=== PATIENT | male | born 1945 | race Caucasian/White ===

== ENCOUNTER 2018-11-15 10:33 | Inpatient (IN) ==
[2018-11-15] MEDS ORDERED: POLYETHYLENE (MIRALAX) 17 GM PACK PO PRN (11:05)
[2018-11-15] MEDS ORDERED: ONDANSETRON INJ 2 MG/ML 2 ML VIAL IV PRN (11:05)
[2018-11-15] MEDS ORDERED: MAGNESIUM HYDROXIDE SUSP 30 ML UDC PO PRN (11:05)
[2018-11-15] MEDS ORDERED: ACETAMINOPHEN 325 MG TAB PO PRN (11:05)
[2018-11-15] MEDS ORDERED: ALUMINUM/MAGNESIUM SUSP 30 ML UDC PO PRN (11:05)
[2018-11-15 11:49] LABS: Basophils # (auto) 0.01 K/uL (0-0.2); Basophils % (auto) 0.1 %; Eosinophils # (auto) 0.13 K/uL (0-0.5); Eosinophils % (auto) 0.9 %; Hematocrit (blood only) 41.9 % (42-52); Hemoglobin 14.2 g/dL (14.0-18.0); Immature Granulocytes # (auto) 0.03 K/uL (0.00-0.02); Immature Granulocytes % (auto) 0.2 %; Lymphocytes % (auto) 9.8 %; Mean Corpuscular Hgb Conc 33.9 g/dL (32-36); Mean Corpuscular Volume 84.8 fL (80-100); Mean Platelet Volume 10.1 fL (7.4-10.4); Monocytes # (auto) 0.99 K/uL (0.11-0.59); Monocytes % (auto) 6.9 %; Neutrophils % (auto) 82.1 %; Platelet Count 188 K/uL (130-400); RDW Coefficient of Variation 12.9 % (11.5-14.5); RDW Standard Deviation 39.5 fL (36.4-46.3); Red Blood Count 4.94 M/uL (4.7-6.1); White Blood Count 14.26 K/uL (4.8-10.8)
[2018-11-15 12:00] LABS: Partial Thromboplastin Ratio 1.2; Partial Thromboplastin Time 30.6 Seconds (21.0-31.0); Prothrombin Time 10.5 Seconds (9.0-12.0)
[2018-11-15 12:05] LABS: Albumin Level 2.9 gm/dl (3.4-5.0); BUN Creatinine Ratio 14.5 (10-20); Calcium 9.2 mg/dl (8.5-10.1); Creatinine Clr Calc Pharmacy 41.1 ml/min; Est GFR (African American) 50.3; Est GFR (Non-African American) 43.4; Magnesium 2.2 mg/dl (1.8-2.4); Potassium 3.6 mmol/L (3.5-5.1)
[2018-11-15 12:08] LABS: Albumin Globulin Ratio 0.6 (0.9-2); Bilirubin,Total 0.7 mg/dl (0.2-1); Globulin 4.9 gm/dl (2.5-4.0); Total Protein 7.9 gm/dl (6.4-8.2)
[2018-11-15] MEDS ORDERED: HEPARIN IV BOLUS 6,000 UNITS in SYRINGE 0 ML IV ONE (12:12)
--- NOTE | 2018-11-15 12:28 | History & Physical Report ---
Date of Service November 15, 2018 Assessment & Plan (1) Pulmonary embolus, left: CT PE confirms LLL subsegmental PE Patient with pleuritic like chest pain -obtain CBC, CMP, Mag, PT/INR, ptt, pro calcitonin, lactate -obtain hypercoagulable work up -initiate heparin standard bolus and gtt (secondary to pt with intermittent hematuria) -if tolerates heparin gtt, transition to Eliquis, xarelto or NOAC in a.m. (case management has been contacted to obtain insurance auths) -will hold off on azithromycin and prednisone taper for now, sx less likely infectious, await blood work -repeat cbc, bmp in a.m. 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 Keene urology -has been having intermittent hematuria post op -given hematuria, initiating Heparin gtt to monitor patient for bleeding prior to starting NOAC (6) DVT prophylaxis: -initiate heparin bolus and gtt Disposition: Discharge to home when able Follow up: with PCP Dr. Hirsch as outpatient for close follow up and follow up of anticoagulation work up Patient was seen in collaboration with Dr. Spence, please see addendum. Starting 11/16/18 patient will be under the care of Dr. Pinto History of Present Illness Chief Complaint: chest discomfort x 3 weeks. Primary Care Provider: Valentín Jerome MD This is a 73-year-old white male who has a significant PMH of HTN, HLD, CKD stage III, BPH who recently underwent TURP and TURBT on 10/07/18 for noncancerous bladder lesion. Since procedure patient has been having off-and- on left-sided chest discomfort anteriorly, SOB with exertion, off and on dry cough. Further noted was elevated temperature yesterday of 101. He initially presented to his PCP approximately 3 weeks ago in which a prednisone taper was prescribed. [place] symptoms consistent with costochondritis. He also had d- dimer drawn secondary to recent procedure which was elevated; however, patient refused CT secondary to improvement of symptoms. Presented to PCP office yesterday with similar pleuritic chest pain, cough, fever of 101. Prescribed Z- John and prednisone taper. He was sent for CT this a.m. which revealed left lower lobe subsegmental PE, consolidation consistent with atelectasis versus early infarction and small left pleural effusion. Given results it was recommended patient be admitted for direct admission. He also elicits intermittent hematuria since procedure in which Dr. Keene is aware. He denies any chills, sweats, lightheadedness, dizziness, shortness of breath at rest, hemoptysis, nausea, vomiting, abdominal pain, change in urinary or bowel habits. Appetite has been normal. Allergies Allergy/AdvReac Type Severity Reaction Status Date / Time chlorhexidine Allergy Intermediate red;burning Verified 11/12/14 07:24 skin Home Medications Home Medications Medication Instructions Recorded Confirmed Type atorvastatin 10 mg PO DAILY 11/15/18 11/15/18 History azithromycin 250 mg PO UD 11/15/18 11/15/18 History chlorthalidone 25 mg PO DAILY 11/15/18 11/15/18 History losartan 50 mg PO DAILY 11/15/18 11/15/18 History prednisone 20 mg PO UD 11/15/18 11/15/18 History Past Med/Surg History Medical History HTN (hypertension) HLD (hyperlipidemia) CKD (chronic kidney disease) stage 3, GFR 30-59 ml/min BPH (benign prostatic hyperplasia) Surgical History History of colonoscopy History of hernia repair H/O transurethral resection of prostate 10/07/18 Hx of transurethral destruction of 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/07/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, was negative for cancer Family History Sister Heart attack Father Black lung disease Other No history of coagulation disorder Social History marital status: Single Current Living Situation Comment: sister and nephew Other Information That Helps Us Care for You: No Feels Safe at Home: Yes Smoking Status: Former smoker Do You Dip or Chew Tobacco: No Smoking End Date: 11/08/84 Second Hand Exposure: No Hx Alcohol Use: No Hx Substance Use: No Beliefs That Will Affect Care: None Communication Ability: Effective Review of Systems All systems reviewed & are unremarkable except as noted in HPI & below Physical Exam 2 Vital Signs (Past 24 Hours): Last Vital Signs Temp 36.5 C 11/15/18 11:49 Pulse 65 11/15/18 11:49 Resp 19 11/15/18 11:49 BP 173/84 H 11/15/18 11:49 Pulse Ox 97 11/15/18 11:53 Physical Exam: Gen: WD/WN, M, NAD, sitting up in bed, pleasant, conversing easily Head: Normocephalic, Atraumatic Eyes: Sclera normal, no conjunctival injection, PERRLA, EOMI ENT: Gross hearing intact, normal pharynx, mucous membranes moist Neck: supple, no adenopathy, No JVD, no bruit, Resp: Clear to auscultation b/l, no wheeze, rales, rhonchi. Normal insp/exp effort, no accessory muscle use, slight discomfort with deep breathing CV: Regular rate, regular rhythm, no murmur, rub, gallop, or ectopy Abd: +BS x 4, soft, nontender, nondistended Musculoskeletal: moves extremities active rom x 4, strength intact, good logistics program manager strength Extremities: No edema bilaterally Skin: warm, moist, no rash, negative turgor, cap refill < 2sec Neuro: Alert and oriented x 3, speech normal, good mood/affect, cran nerve 2-12 intact grossly : deferred Results & Data Laboratory Results Short CBC 11/15/18 Range/Units 11:19 WBC 14.26 H (4.8-10.8) K/uL Hgb 14.2 (14.0-18.0) g/dL Hct 41.9 L (42-52) % Plt Count 188 (130-400) K/uL BMP 11/15/18 11:19 Sodium 137 Potassium 3.6 Chloride 102 Carbon Dioxide 28 BUN 23 H Creatinine 1.57 H Glucose 104 H Calcium 9.2 Liver Function 11/15/18 Range/Units 11:19 Total Bilirubin 0.7 (0.2-1) mg/dl AST 10 L (15-37) U/L ALT 21 (12-78) U/L Alkaline Phosphatase 72 (45-117) U/L Albumin 2.9 L (3.4-5.0) gm/dl Diagnostic Findings CT PE: IMPRESSION Small pulmonary emboli in the left lower lobar segmental pulmonary arteries. No evidence of right heart strain. Consolidation in the left lower lobe likely atelectasis though early infarct not excluded. Small left pleural effusion. ECG Rate (beats per minute): 63 Rhythm: normal sinus Findings: + RBBB Change: no significant change Code Status & VTE Plan Code Status Full Code VTE Prophylaxis Plan VTE Prophylaxis will be ordered: Yes Supervising Physician Co-Signing Physician Notes I saw this patient with the physician medical support assistant, I participated in the history, physical, review of systems, and physical exam. I reviewed the medications with the patient and the physician medical support assistant and helped reconcile the medications. I helped take a detailed family and social history as well. I formulated the assessment and plan personally with the physician medical support assistant and went over it with the patient.
[2018-11-15] MEDS: HEPARIN STANDARD DEXTROSE 25,000 UNITS/500 ML IV SCH (12:41)
[2018-11-15] MEDS ORDERED: HEPARIN SOD (PORCINE) 1000 UNIT/ML 10 ML VIAL ONE (12:46)
[2018-11-15] MEDS: ALBUTEROL 0.083% NEBU SOLN 3 ML VIAL NEB SCH ×2 (13:42→19:23)
[2018-11-15 19:46] LABS: Partial Thromboplastin Ratio 1.8
[2018-11-15 19:49] LABS: Partial Thromboplastin Time 45.7 Seconds (21.0-31.0)
[2018-11-15] MEDS ORDERED: HEPARIN IV BOLUS 3,000 UNITS in SYRINGE 0 ML IV ONE (21:45)
[2018-11-16] MEDS: ALBUTEROL 0.083% NEBU SOLN 3 ML VIAL NEB SCH ×3 (01:51→14:12)
[2018-11-16 04:39] LABS: Basophils # (auto) 0.02 K/uL (0-0.2); Basophils % (auto) 0.2 %; Eosinophils # (auto) 0.56 K/uL (0-0.5); Eosinophils % (auto) 6.2 %; Hematocrit (blood only) 39.2 % (42-52); Hemoglobin 13.2 g/dL (14.0-18.0); Immature Granulocytes # (auto) 0.02 K/uL (0.00-0.02); Immature Granulocytes % (auto) 0.2 %; Lymphocytes # (auto) 1.59 K/uL (1.2-3.4); Lymphocytes % (auto) 17.5 %; Mean Corpuscular Hgb Conc 33.7 g/dL (32-36); Mean Corpuscular Volume 85.2 fL (80-100); Mean Platelet Volume 9.9 fL (7.4-10.4); Monocytes # (auto) 0.59 K/uL (0.11-0.59); Monocytes % (auto) 6.5 %; Neutrophils # (auto) 6.31 K/uL (1.4-6.5); Neutrophils % (auto) 69.4 %; Platelet Count 183 K/uL (130-400); RDW Coefficient of Variation 13.1 % (11.5-14.5); RDW Standard Deviation 40.3 fL (36.4-46.3); White Blood Count 9.09 K/uL (4.8-10.8)
[2018-11-16 04:58] LABS: BUN Creatinine Ratio 17.8 (10-20); Calcium 8.5 mg/dl (8.5-10.1); Creatinine Clr Calc Pharmacy 42.5 ml/min; Est GFR (African American) 52.3; Est GFR (Non-African American) 45.1; Potassium 3.2 mmol/L (3.5-5.1)
[2018-11-16 05:02] LABS: Partial Thromboplastin Ratio 2.5
[2018-11-16 05:10] LABS: Partial Thromboplastin Time 64.7 Seconds (21.0-31.0)
[2018-11-16] MEDS: HEPARIN STANDARD DEXTROSE 25,000 UNITS/500 ML IV SCH (05:14)
[2018-11-16] MEDS ORDERED: ATORVASTATIN 10 MG TAB PO SCH (09:00)
[2018-11-16] MEDS ORDERED: CHLORTHALIDONE 25 MG TAB PO SCH (09:00)
[2018-11-16] MEDS ORDERED: LOSARTAN POTASSIUM 50 MG TAB PO SCH (09:00)
--- NOTE | 2018-11-16 13:21 | Hospitalist Progress Note ---
Date of Service November 16, 2018 Assessment & Plan (1) Pulmonary embolus, left: CT PE confirms LLL subsegmental PE Patient c/o pleuritic like chest pain on admission -hypercoagulable work up -Continue heparin when able -if tolerates heparin gtt, transition to Eliquis, xarelto or NOAC in a.m. (case management has been contacted to obtain insurance auths) -We will get hematology to see the patient (2) HTN (hypertension): -continue chlorthalidone and losartan -monitor bp closely (3) HLD (hyperlipidemia): -continue statin (4) CKD (chronic kidney disease) stage 3, GFR 30-59 ml/min: -baseline CR 1.5 -renal function stable -monitor bmp (5) BPH (benign prostatic hyperplasia): -s/p recent TURP/TURBT of noncancerous tumor 10/07/18 -follows Dr. Keene urology -has been having intermittent hematuria post op -given hematuria, we initiated a heparin gtt to monitor patient for bleeding prior to starting NOAC, did have hematuria so we will not consult hematology/ oncology for further recommendations and hold the heparin drip for now. (6) DVT prophylaxis: -Hold heparin drip for now Disposition: Discharge to home when able Follow up: with PCP Dr. Hirsch as outpatient for close follow up and follow up of anticoagulation work up Subjective She was placed on heparin drip in case he bled, was going to put him on Eliquis but since this was not reversible I decided to put him on a heparin drip. Overnight he did bleed, had 2 episodes of hematuria, otherwise he had no other symptoms Physical Exam 2 Vital Signs (Past 24 Hours): Last Vital Signs Temp 36.9 C 11/16/18 07:40 Pulse 83 11/16/18 10:04 Resp 18 11/16/18 08:03 BP 147/70 H 11/16/18 07:40 Pulse Ox 95 11/16/18 08:03 ROS-No Headache, No Visual Changes, No Fever, No Chills, No Neck Pain or Stiffness, No Chest Pain, No Palpitations, No SOB, No CAVAZOS, No Cough, No Sputum, No Wheezing, No Abdominal Pain, No Diarrhea, No Hematemesis, No Hemoptysis, No Unexpected Weight Loss, No Flank pain, No Melena, No Hematochezia, No Frequency , No Urgency, No Burning, No Hematuria, No Rashes, No Diaphoresis. Appetite is Normal Physical Exam Gen-AAO x 3, NAD, Afebrile Head-NCAT, EOMI, PERRLA, Anicteric Sclera, No Posterior Pharyngeal Erythema Neck-Supple, No JVD, No Thyromegaly, No Masses, No LAD, No Bruits Lungs-Clear to Auscultation Bilaterally, No Rales, No Rhonchi, No Wheezing, No Crepitus Chest-No S4, +S1, +S2, No S3, No Murmurs, No Rubs, No Gallops, No Ectopy Abdomen-Soft, Bowel Sounds Present, Non Tender, Non Distended, No Hepatomegaly, No Splenomegaly, No Palpable Masses, No Rebound, No Rigidity, No Guarding Musculoskeletal-Full Range of Motion Bilaterally, No CVAT Extremities-No Cyanosis, No Clubbing, No Edema Nuero-Cranial Nerves II-XII grossly intact, Motor WNL, DTRs WNL, Strength WNL, No Focal Psych-Normal Mood -positive hematuria Results & Data Laboratory Results Current Diagnoses Hyperlipidemia, unspecified (11/15/18) Essential (primary) hypertension (11/15/18) Other pulmonary embolism without acute cor pulmonale (11/15/18) Chronic kidney disease, stage 3 (moderate) (11/15/18) Benign prostatic hyperplasia without lower urinary tract symptoms (11/15/18) Allergies chlorhexidine Allergy (Intermediate, Verified 11/12/14 07:24) red;burning skin Height/Weight/Isolation Height 5 ft 8 in Weight 76.5 kg Chemistry 11/15/18 11/16/18 11:19 04:14 Sodium 137 138 Potassium 3.6 3.2 L Chloride 102 104 Carbon Dioxide 28 28 Anion Gap 6.0 6.0 BUN 23 H 27 H Creatinine 1.57 H 1.52 H Glucose 104 H 112 H
--- NOTE | 2018-11-16 17:02 | Discharge Summary ---
Date of Service November 16, 2018 Admission HPI Per Admitting Provider This is a 73-year-old white male who has a significant PMH of HTN, HLD, CKD stage III, BPH who recently underwent TURP and TURBT on 10/07/18 for noncancerous bladder lesion. Since procedure patient has been having off-and- on left-sided chest discomfort anteriorly, SOB with exertion, off and on dry cough. Further noted was elevated temperature yesterday of 101. He initially presented to his PCP approximately 3 weeks ago in which a prednisone taper was prescribed. [place] symptoms consistent with costochondritis. He also had d- dimer drawn secondary to recent procedure which was elevated; however, patient refused CT secondary to improvement of symptoms. Presented to PCP office yesterday with similar pleuritic chest pain, cough, fever of 101. Prescribed Z- John and prednisone taper. He was sent for CT this a.m. which revealed left lower lobe subsegmental PE, consolidation consistent with atelectasis versus early infarction and small left pleural effusion. Given results it was recommended patient be admitted for direct admission. He also elicits intermittent hematuria since procedure in which Dr. Keene is aware. He denies any chills, sweats, lightheadedness, dizziness, shortness of breath at rest, hemoptysis, nausea, vomiting, abdominal pain, change in urinary or bowel habits. Appetite has been normal. Admission Exam Per Admitting Provider ROS-No Headache, No Visual Changes, No Fever, No Chills, No Neck Pain or Stiffness, No Chest Pain, No Palpitations, No SOB, No CAVAZOS, No Cough, No Sputum, No Wheezing, No Abdominal Pain, No Diarrhea, No Hematemesis, No Hemoptysis, No Unexpected Weight Loss, No Flank pain, No Melena, No Hematochezia, No Frequency , No Urgency, No Burning, No Hematuria, No Rashes, No Diaphoresis. Appetite is Normal, Pleuritic CP Physical Exam Gen-AAO x 3, NAD, Afebrile Head-NCAT, EOMI, PERRLA, Anicteric Sclera, No Posterior Pharyngeal Erythema Neck-Supple, No JVD, No Thyromegaly, No Masses, No LAD, No Bruits Lungs-Clear to Auscultation Bilaterally, No Rales, No Rhonchi, No Wheezing, No Crepitus Chest-No S4, +S1, +S2, No S3, No Murmurs, No Rubs, No Gallops, No Ectopy Abdomen-Soft, Bowel Sounds Present, Non Tender, Non Distended, No Hepatomegaly, No Splenomegaly, No Palpable Masses, No Rebound, No Rigidity, No Guarding Musculoskeletal-Full Range of Motion Bilaterally, No CVAT Extremities-No Cyanosis, No Clubbing, No Edema Nuero-Cranial Nerves II-XII grossly intact, Motor WNL, DTRs WNL, Strength WNL, No Focal Psych-Normal Mood Principal Diagnosis PE HTN HLD BPH CKD Discharge Exam ROS-No Headache, No Visual Changes, No Fever, No Chills, No Neck Pain or Stiffness, No Chest Pain, No Palpitations, No SOB, No CAVAZOS, No Cough, No Sputum, No Wheezing, No Abdominal Pain, No Diarrhea, No Hematemesis, No Hemoptysis, No Unexpected Weight Loss, No Flank pain, No Melena, No Hematochezia, No Frequency , No Urgency, No Burning, No Hematuria, No Rashes, No Diaphoresis. Appetite is Normal Physical Exam Gen-AAO x 3, NAD, Afebrile Head-NCAT, EOMI, PERRLA, Anicteric Sclera, No Posterior Pharyngeal Erythema Neck-Supple, No JVD, No Thyromegaly, No Masses, No LAD, No Bruits Lungs-Clear to Auscultation Bilaterally, No Rales, No Rhonchi, No Wheezing, No Crepitus Chest-No S4, +S1, +S2, No S3, No Murmurs, No Rubs, No Gallops, No Ectopy Abdomen-Soft, Bowel Sounds Present, Non Tender, Non Distended, No Hepatomegaly, No Splenomegaly, No Palpable Masses, No Rebound, No Rigidity, No Guarding Musculoskeletal-Full Range of Motion Bilaterally, No CVAT Extremities-No Cyanosis, No Clubbing, No Edema Nuero-Cranial Nerves II-XII grossly intact, Motor WNL, DTRs WNL, Strength WNL, No Focal Psych-Normal Mood Discharge Data Allergies Allergy/AdvReac Type Severity Reaction Status Date / Time chlorhexidine Allergy Intermediate red;burning Verified 11/12/14 07:24 skin Consultations 11/15/18 11:07 Consult Case Management - Discharge Planning Routine 11/16/18 13:21 Consult Hematology Routine Ordered Studies 11/16/18 16:18 US venous doppler [facility] Urgent Hospital Course (1) Pulmonary embolus, left: CT PE confirms LLL subsegmental PE Patient c/o pleuritic like chest pain on admission -hypercoagulable work up in progress -DC today on Eliquis 10 mg twice daily for 7 days then 5 mg twice daily -Hematology has seen the patient and will follow up outpatient, likely will be on Eliquis for 6 months (2) HTN (hypertension): -continue chlorthalidone and losartan (3) HLD (hyperlipidemia): -continue statin (4) CKD (chronic kidney disease) stage 3, GFR 30-59 ml/min: -baseline CR 1.5 -renal function stable (5) BPH (benign prostatic hyperplasia): -s/p recent TURP/TURBT of noncancerous tumor 10/07/18 -follows Dr. Keene urology -has been having intermittent hematuria post op (6) DVT prophylaxis: Disposition: Discharge to home Today Follow up: with PCP Dr. Hirsch as outpatient for close follow up and follow up of anticoagulation work up Follow-up with hematology in the office in the next 2-3-weeks Total Time Total Time Spent Total Time Spent (In Minutes): 70 mins Total Time Includes: Examination of the Patient, Discharge Planning, Medication Reconciliation and Communication With Other Providers Discharge Plan Discharge Items Patient Disposition: Home - Self-Care Reason For Visit: LLL PNA/PE Discharge Diagnosis: PE HTN HLD BPH CKD Discharge Goals: Improve disease control Activity: Resume your previous activity Lifting: Gradually increase as tolerated Bathing: No limitations Sexual Activity: After one week Exercise/Sports: Wait until after follow-up appointment Driving/Machine Use: No limitations Weightbearing: Left weightbearing and Right weightbearing Non-emergency contact: Primary Care Provider and Oncologist Call non-emergency contact if: your symptoms worsen Follow-up/Referrals: Valentín Jerome MD [Primary Care Provider] - Diet: Heart Healthy Addtl Provider Instructions: On Eliquis for PE Prescriptions: New apixaban 5 mg tablet 5 mg PO BID Qty: 90 RF: 0 Continue losartan 50 mg Tablet 50 mg PO DAILY RF: 0 atorvastatin 10 mg Tablet 10 mg PO DAILY RF: 0 chlorthalidone 25 mg Tablet 25 mg PO DAILY RF: 0 Discontinued azithromycin 250 mg tablet 250 mg PO UD RF: 0 prednisone 20 mg tablet 20 mg PO UD RF: 0 Visit Report Forms: My [facility] [employer] Portal Stand-Alone Forms: My [facility] [employer] Discharge Orders: Discharge Order (Routine); Ordered 11/16/18 Ordered By: Harlan Spence Admission Data Admit Date/Time: 11/16/18 13:22 Attending Provider: Harlan Spence Admit Provider: Harlan Spence Primary Care Provider: Valentín Jerome Other Providers: Lazaro Cohn ; Kishor Sood ; Nathen Mott ; Shahab Perales Service: Telemetry
--- NOTE | 2018-11-16 17:13 | Ultrasound Report ---
US venous doppler LE BI HISTORY: Pain. Edema. PE COMPARISON STUDY: None. FINDINGS: There is normal compressibility, flow, and augmentation within the bilateral lower extremit y deep venous systems. IMPRESSION: No DVT within the right or left lower extremity. The above report was generated using voice recognition software. It may contain grammatical, syntax or spelling errors. Electronically signed by: Aris Garcia M.D. 11/16/2018 5:12 PM
--- NOTE | 2018-11-16 17:44 | Oncology Consultation ---
Date of Consultation November 16, 2018 Assessment & Plan (1) Pulmonary embolus, left: 73-year-old male, Admitted for symptomatic pulmonary embolism in the left lower extremity, this is the 1st episode, no family history of any kind of thrombotic complications, no increasing leg pain or leg edema. Start her on IV heparin with improvement of the pulmonary symptoms. Symptoms started about 10 days after the prostate biopsy surgery and he traveled for the fishing trip to [facility]. Hypercoagulable state work up in progress. I agree about switching him to newer oral anticoagulant treatment with Eliquis and then he could go home, before he goes, would like to check bilateral lower extremity doppler evaluation therapy for the future comparison. It appears that he has provoked thrombotic complications, planning for 3 to 6 months off the anticoagulant treatment, I would like to see him back in the clinic in about 3 months for the follow-up visit. Nathen Mott MD Hem/Onc History of Present Illness Attending Physician: Harlan Spence DO 73-year-old male, Background medical problem: - Hypertension, hyperlipidemia, chronic kidney disease, BPH. He underwent biopsy of the prostate lesion on 10/07/2018, final path showed benign findings. About 10 days after that, he traveled to [facility] fishing trip, he says that he was in the cold water for some time, he wasn't feeling quite well after that, had some trouble breathing and since then he has pulmonary symptoms, seen by primary-care provider, treated with prednisone taper, continue to have increasing chest pain, flank pain, shortness of breath, increasing coughing, had slightly elevated d-dimer level in the recent blood workup, had CT scan of chest with PE protocol which shows evidence of small left lower lobe pulmonary embolism and now he is admitted for the further management. I saw him at bedside, he is sitting comfortably in the bed, receiving IV heparin treatment, he says that he's feeling much better in the last 12 hours, flank pain has improved, shortness of breath also has improved, has some intermittent hematuria following the recent the surgical intervention, no bleeding from either sites, no increasing bruising. He denies any history of thrombotic complications in the past. No family for any kind of thrombotic complications. Allergies Allergy/AdvReac Type Severity Reaction Status Date / Time chlorhexidine Allergy Intermediate red;burning Verified 11/12/14 07:24 skin Home Medications Home Medications Medication Instructions Recorded Confirmed Type atorvastatin 10 mg PO DAILY 11/15/18 11/15/18 History chlorthalidone 25 mg PO DAILY 11/15/18 11/15/18 History losartan 50 mg PO DAILY 11/15/18 11/15/18 History apixaban 5 mg PO BID #90 tab 11/16/18 Rx Patient History Medical History HTN (hypertension) HLD (hyperlipidemia) CKD (chronic kidney disease) stage 3, GFR 30-59 ml/min BPH (benign prostatic hyperplasia) Surgical History History of colonoscopy History of hernia repair H/O transurethral resection of prostate 10/07/18 Hx of transurethral destruction of 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/07/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, was negative for cancer Family History Sister Heart attack Father Black lung disease Other No history of coagulation disorder Social History marital status: Single Current Living Situation Comment: sister and nephew Other Information That Helps Us Care for You: No Feels Safe at Home: Yes Smoking Status: Former smoker Do You Dip or Chew Tobacco: No Smoking End Date: 11/08/84 Second Hand Exposure: No Hx Alcohol Use: No Hx Substance Use: No Beliefs That Will Affect Care: None Preferred Language: Hebrew Review of Systems GENERAL: No recent change in weight, no weakness, no fatigue, no fever, sweats or chills. SKIN: No skin rash, no bruising. HEAD: No headache, no dizziness. EYES: No change in the vision, no diplopia, EARS: No earache ,no tinnitus, NOSE: No epistaxis, No nasal discharge or stuffiness, MOUTH: No sores, no dysphagia, no hoarseness of voice, NECK: No lumps, No swelling in thyroid area. No stiffness. PULMONARY: cough with scanty white expectant for the last 3 to 4 weeks, shortness of breath, no hemoptysis, no chest pain, No wheezing. CARDIOVASCULAR: No anginal chest pain, no PND, no orthopnea. No palpitation, no leg edema. No syncope. GASTRIINTESTINAL: some nonspecific flank pain, no nausea or vomiting. No diarrhea, No constipation. No blood in stool or black tarry stools. No abdominal distention. UROLOGIC: No burning urination. No hematuria. MUSCULOSKELETAL: No joint pain, No joint swelling, no muscle weakness. HEMATOLOGIC: No anemia, no bleeding disorder, No bruising. No history of blood transfusion. NEUROLOGIC: No seizures, no focal weakness, no speech difficulty, No memory disturbances. No tingling or numbness of the extremities. PSYCHRIATRIC: No depression. No anxiety. No psychosis. Physical Exam 2 Vital Signs (Past 24 Hours): Last Vital Signs Temp 36.6 C 11/16/18 17:30 Pulse 87 11/16/18 17:30 Resp 18 11/16/18 17:30 BP 173/84 H 11/16/18 17:30 Pulse Ox 96 11/16/18 17:30 - Alert and oriented x3, well built man, not in any distress. - HEENT: no icterus, no pallor, Throat: Normal. - Neck: No palpable cervical lymphadenopathy. - Chest: clear to auscultation. - Abdomen: soft, nontender, no hepatomegaly, no splenomegaly. - No focal neuro deficit. - Extremities: no finger clubbing, no leg edema. Results & Data Laboratory Results - D-dimer �> 1.0 which is slightly on the higher side (10/31/2018). - BUN/creatinine: 26/1.5 (09/15/2018) - BUN/creatinine: 22/1.4 (11/15/2018) - PSA level �> 7.56 (07/19/2018) Blood workup done on 11/15/2018: - WBC 14,200, H&H of 14.2/42, Platelet count of 188,000 - BUN/creatinine: 20/1.5, normal liver function test. HISTOPATHOLOGY: 10/07/2018: A. 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 B. Prostate chips: -Prostatic tissue with nodular hyperplasia and a focal, atypical small acinar proliferation. Diagnostic Findings MRI of the pelvis (09/23/2018) - Enlarged prostate measuring 5 x 4.2 x 4.9 cm. - No pelvic lymphadenopathy noted. CT scan of the chest done on 11/15/2018: - Small pulmonary emboli in the left lower lobe, no evidence of right heart strain noted. - Consolidation in the left lower lobe (atelectasis versus early infarction), small left pleural effusion noted.
[2018-11-19 15:57] LABS: Anti Cardiolipin Ab IgG <14 GPL (< = 14); Anti Cardiolipin Ab IgM <12 MPL (< = 12); Anti-Thrombin III Activity 126 % activity (80-120); B2 Glycoprotein IgA <9 SAU (<=20); B2 Glycoprotein IgG <9 SGU (<=20); B2 Glycoprotein IgM <9 SMU (<=20); Lupus Anticoagulant Positive (Negative); Protein S Functional(Activity) 81 % (70-150)
== END 2018-11-16 18:58 | disposition home or self-care (01) | DRG 176 ==
LOC: 2S → SUATTDRO 10:40